=== PATIENT | male | born 1955 | race Caucasian/White ===

== ENCOUNTER 2021-09-26 01:46 | Inpatient (IN) | payer MEDICARE ==
[~2021-09-26] VITALS: Ht 182.9 cm; Wt 81.6 kg
[2021-09-26] MEDS ORDERED: ALPRAZOLAM1 MG PO (04:37)
[2021-09-26] MEDS ORDERED: SINEMET CR 50/201 EA PO (04:39)
[2021-09-26] MEDS ORDERED: MIRALAX17 GM PO (04:41)
[2021-09-26] MEDS ORDERED: IBU800 MG PO (04:42)
[2021-09-26] MEDS ORDERED: COLACE100 MG PO (04:42)
[2021-09-26] MEDS ORDERED: IRON325 M1 PO (04:43)
[2021-09-26 13:51] LABS: RED BLOOD COUNT 3.68 M/UL (4.20-5.50); WHITE BLOOD COUNT 15.3 K/UL (4.5-11.0)
[2021-09-26 14:17] LABS: BUN/CREATININE RATIO 20 (0-10)
[2021-09-27 06:32] LABS: HEMOGLOBIN 11.3 gm/dl (14.0-17.5); RED BLOOD COUNT 3.6 M/UL (4.20-5.50); WHITE BLOOD COUNT 14.4 K/UL (4.5-11.0)
[2021-09-27 06:45] LABS: BUN/CREATININE RATIO 23 (0-10)
[2021-09-30 04:24] LABS: HEMOGLOBIN 10.8 gm/dl (14.0-17.5); RED BLOOD COUNT 3.43 M/UL (4.20-5.50)
[2021-09-30 04:27] LABS: WHITE BLOOD COUNT 9.4 K/UL (4.5-11.0)
[2021-09-30 04:36] LABS: BUN/CREATININE RATIO 24 (0-10)
[2021-10-01 04:07] LABS: HEMOGLOBIN 11.2 gm/dl (14.0-17.5); RED BLOOD COUNT 3.51 M/UL (4.20-5.50); WHITE BLOOD COUNT 7.9 K/UL (4.5-11.0)
[2021-10-01 04:26] LABS: BUN/CREATININE RATIO 29 (0-10)
[2021-10-01] MEDS ORDERED: ENOXAPARIN40 MG/0.4 SC (10:08)
[2021-10-01] MEDS ORDERED: ACETAMINOPHEN500 MG PO (10:08)
== END 2021-10-01 18:48 | DRG 482 ==
LOC: M/S 04:00
PROVIDERS: Internal Medicine; Orthopaedic Surgery; ADMIT Internal Medicine
PROC: B24BZZZ Ultrasonography of Heart with Aorta (ICD-10-PCS; 2021-09-26)
PROC: 0QS704Z Reposition Left Upper Femur with Internal Fixation Device, Open Approach (ICD-10-PCS; principal; 2021-09-26 10:57)
DX: S72.115A Nondisplaced fracture of greater trochanter of left femur, initial encounter for closed fracture (principal); N31.9 Neuromuscular dysfunction of bladder, unspecified; N40.0 Benign prostatic hyperplasia without lower urinary tract symptoms; Z20.822 Contact with and (suspected) exposure to COVID-19; D69.6 Thrombocytopenia, unspecified; Z96.652 Presence of left artificial knee joint; I11.0 Hypertensive heart disease with heart failure; I50.9 Heart failure, unspecified; I71.4 Abdominal aortic aneurysm, without rupture; G20 Parkinson's disease; W18.30XA Fall on same level, unspecified, initial encounter; R16.0 Hepatomegaly, not elsewhere classified; I08.2 Rheumatic disorders of both aortic and tricuspid valves; F02.80 Dementia in other diseases classified elsewhere, unspecified severity, without behavioral disturbance, psychotic disturbance, mood disturbance, and anxiety; D50.9 Iron deficiency anemia, unspecified; Y92.090 Kitchen in other non-institutional residence as the place of occurrence of the external cause; Z82.49 Family history of ischemic heart disease and other diseases of the circulatory system
CPT/HCPCS: ECHO; 36415; 71046; 71275; 72170; 73501; 73700; 74230; 76000; 80048; 83735; 85025; 85027; 86850; 86900; 86901; 92526; 92610; 92611-GN; 93005; 93306; 97110; 97110-GP-CQ; 97116-GP-CQ; 97162; 97166; 97530; 97530-GP-CQ; C171; C1713; J0690; J1100; J1650; J2001; J2250; J2270; J2405; J2704; J3010; J3370; J7030; J7120; Q9967